=== PATIENT | male | born 2000 | race Caucasian/White ===

== ENCOUNTER 2021-07-11 11:06 | Inpatient (IN) | payer OTHER ==
[~2021-07-11] VITALS: Ht 170.2 cm; Wt 57.3 kg
[2021-07-11 12:06] LABS: BASOPHILS % (AUTO) 0.5 % (0.0-2.0); EOSINOPHILS % (AUTO) 0.4 % (1.0-6.0); HEMATOCRIT 44.3 % (41-53); HEMOGLOBIN 14.8 g/dL (13.5-17.5); LYMPHOCYTES # (AUTO) 0.9 K/uL (1.0-4.8); LYMPHOCYTES % (AUTO) 18.4 % (22.0-44.0); MEAN CORPUSCULAR HGB CONC 33.5 G/dL (31.0-37.0); MEAN CORPUSCULAR VOLUME 90 fL (80-100); MONOCYTES # (AUTO) 0.3 K/uL (0.1-1.0); NEUTROPHILS # (AUTO) 3.6 K/uL (1.8-7.7); NEUTROPHILS % (AUTO) 73.7 % (40.0-70.0); PLATELET COUNT (AUTO) 255 K/uL (150-450); RED BLOOD CELL COUNT(AUTO) 4.95 MIL/uL (4.50-5.90); RED CELL DISTRIBUTION WIDTH 13.3 % (11.5-14.5)
[2021-07-11 12:14] LABS: ANION GAP 10 mmol/L (8-16); CALCIUM, TOTAL 9.6 mg/dL (8.8-10.5); CARBON DIOXIDE 29 mmol/L (22-29); CHLORIDE 102 mmol/L (98-107); CREATININE 0.82 mg/dL (0.60-1.30); GLOMERULAR FILTR. RATE CALC > 60 mL/min (>60); GLUCOSE,RANDOM 95 mg/dL (70-110); POTASSIUM 3.7 mmol/L (3.5-5.1); SODIUM SERUM 141 mmol/L (136-145); UREA NITROGEN, BLOOD 12 mg/dL (7-18)
[2021-07-11 12:20] LABS: ALANINE AMINOTRANSFERASE 21 U/L (12-78); ALBUMIN 4.8 g/dL (3.4-5.0); ALKALINE PHOSPHATASE 67 U/L (46-116); ASPARTATE AMINOTRANSFERASE 27 U/L (15-37); BILIRUBIN,TOTAL 1.6 mg/dL (0.1-1.0); TOTAL PROTEIN, SERUM 8.4 g/dL (6.4-8.2)
[2021-07-11 12:44] LABS: COVID AG,FIA SOURCE NASOPHARYNGEAL
[2021-07-11] MEDS ORDERED: DiphenhydrAMINE HCL 50 MG/ML VIAL ONE (12:58)
[2021-07-11] MEDS ORDERED: LORazepam 2 MG/ML VIAL ONE (12:58)
[2021-07-11] MEDS ORDERED: HALOPERIDOL LACTATE 5 MG/ML VIAL ONE (12:58)
[2021-07-11] MEDS ORDERED: HALOPERIDOL LACTATE 5 MG/ML VIAL IM ONE (13:15)
[2021-07-11] MEDS ORDERED: DiphenhydrAMINE HCL 50 MG/ML VIAL IM ONE (13:15)
[2021-07-11] MEDS ORDERED: LORazepam 2 MG/ML VIAL IM ONE (13:15)
[2021-07-11] MEDS ORDERED: GuaiFENesin/D-METHORPHAN [SUGAR-FREE] 200-20MG/10 ML SYRUP UDCUP PO PRN (18:15)
[2021-07-11] MEDS ORDERED: PROMETHAZINE HCL 25 MG TABLET PO PRN (18:15)
[2021-07-11] MEDS ORDERED: TUBERCULIN, PURIFIED PROTEIN DERIVATIVE 5 TU/0.1 ML SYRINGE ID ONE (18:15)
[2021-07-11] MEDS ORDERED: MAG HYDROX/AL HYDROX/SIMETH ES 30 ML SUSPENSION UDCUP PO PRN (18:15)
[2021-07-11] MEDS ORDERED: MAGNESIUM HYDROXIDE SUSPENSION 30 ML UDCUP PO PRN (18:15)
[2021-07-11] MEDS ORDERED: ACETAMINOPHEN 325 MG TABLET PO PRN (18:15)
[2021-07-11] MEDS ORDERED: HydrOXYzine PAMOATE 50 MG CAPSULE PO PRN (18:15)
[2021-07-11] MEDS ORDERED: LOPERAMIDE HCL 2 MG CAPSULE PO PRN (18:15)
[2021-07-11] MEDS: THIAMINE 100 MG TABLET PO SCH (18:33)
[2021-07-11] MEDS: OLANZapine 5 MG RAPDIS TABLET PO SCH (18:33)
[2021-07-11] MEDS: DIVALPROEX SODIUM 500 MG ER TABLET PO SCH (18:33)
[2021-07-11] MEDS ORDERED: OLANZapine 5 MG RAPDIS TABLET PO PRN (19:15)
[2021-07-11 20:29] VITALS: BP 105/60
[2021-07-11] MEDS: MELATONIN 5 MG TABLET PO SCH (20:32)
[2021-07-11] MEDS ORDERED: INFLUENZA VIRUS VACCINE QVS 2021-22 (6MO+)/PF 60 MCG/0.5 ML SYRINGE IM. ONE (20:45)
[2021-07-12 08:07] LABS: HEMOGLOBIN A1C 5.4 % (3.8-5.6)
[2021-07-12 08:19] LABS: FREE T4 (FREE THYROXINE) 1.49 ng/dL (0.76-1.46); THYROID STIMULATING HORMONE 1.85 uIU/mL (0.36-3.74)
[2021-07-12] MEDS: MULTIVITAMINS WITH MINERALS, THERAPEUTIC TABLET PO SCH (10:36)
[2021-07-12] MEDS: OLANZapine 5 MG RAPDIS TABLET PO SCH ×3 (10:36→17:02)
[2021-07-12] MEDS: DIVALPROEX SODIUM 500 MG ER TABLET PO SCH ×2 (10:37→16:04)
[2021-07-12] MEDS: OMEGA-3/DHA/EPA/FISH OIL 1,000 MG CAPSULE PO SCH (10:37)
[2021-07-12] MEDS: FOLIC ACID 1 MG TABLET PO SCH (10:37)
[2021-07-12] MEDS: NALTREXONE HCL 50 MG TABLET PO SCH (10:37)
[2021-07-12] MEDS: THIAMINE 100 MG TABLET PO SCH ×2 (10:38→16:04)
[2021-07-12 12:31] VITALS: BP 104/63
[2021-07-12 16:25] VITALS: BP 115/72
[2021-07-12 17:16] VITALS: BP 117/73
[2021-07-12 20:16] LABS: AMPHET/METH SCREEN,URINE NEGATIVE (NEGATIVE); BARBITURATE SCREEN, URINE NEGATIVE (NEGATIVE); BENZODIAZEPINES SCREEN,URINE NEGATIVE (NEGATIVE); CANNABINOID SCREEN,URINE NEGATIVE (NEGATIVE); COCAINE SCREEN,URINE NEGATIVE (NEGATIVE); METHADONE SCREEN, URINE NEGATIVE (NEGATIVE); OPIATE SCREEN,URINE NEGATIVE (NEGATIVE)
[2021-07-12 20:19] LABS: PHENCYCLIDINE SCREEN,URINE NEGATIVE (NEGATIVE)
[2021-07-12] MEDS: MELATONIN 5 MG TABLET PO SCH (20:19)
[2021-07-12] MEDS ORDERED: PALIPERIDONE PALMITATE 234 MG/1.5 ML SYRINGE IM ONE (22:00)
[2021-07-13 08:12] VITALS: BP 117/66
[2021-07-13] MEDS: NALTREXONE HCL 50 MG TABLET PO SCH (09:04)
[2021-07-13] MEDS: MULTIVITAMINS WITH MINERALS, THERAPEUTIC TABLET PO SCH (09:06)
[2021-07-13] MEDS: OMEGA-3/DHA/EPA/FISH OIL 1,000 MG CAPSULE PO SCH (09:06)
[2021-07-13] MEDS: FOLIC ACID 1 MG TABLET PO SCH (09:07)
[2021-07-13] MEDS: THIAMINE 100 MG TABLET PO SCH ×2 (09:07→16:52)
[2021-07-13] MEDS: DIVALPROEX SODIUM 500 MG ER TABLET PO SCH ×2 (09:07→16:52)
[2021-07-13] MEDS: OLANZapine 5 MG RAPDIS TABLET PO SCH ×4 (09:07→20:33)
[2021-07-13 16:44] VITALS: BP 112/63
[2021-07-13] MEDS: LORazepam 2 MG TABLET PO PRN (16:52)
[2021-07-13] MEDS: MELATONIN 5 MG TABLET PO SCH (20:28)
[2021-07-14] MEDS: FOLIC ACID 1 MG TABLET PO SCH (09:20)
[2021-07-14] MEDS: THIAMINE 100 MG TABLET PO SCH ×2 (09:20→16:47)
[2021-07-14] MEDS: OMEGA-3/DHA/EPA/FISH OIL 1,000 MG CAPSULE PO SCH (09:20)
[2021-07-14] MEDS: OLANZapine 5 MG RAPDIS TABLET PO SCH ×4 (09:20→20:17)
[2021-07-14] MEDS: NALTREXONE HCL 50 MG TABLET PO SCH (09:20)
[2021-07-14] MEDS: DIVALPROEX SODIUM 500 MG ER TABLET PO SCH ×2 (09:20→16:47)
[2021-07-14] MEDS: MULTIVITAMINS WITH MINERALS, THERAPEUTIC TABLET PO SCH (09:20)
[2021-07-14 16:30] VITALS: BP 127/69
[2021-07-14] MEDS: MELATONIN 5 MG TABLET PO SCH (20:16)
[2021-07-15 08:27] VITALS: BP 119/51
[2021-07-15] MEDS: NALTREXONE HCL 50 MG TABLET PO SCH (08:50)
[2021-07-15] MEDS: THIAMINE 100 MG TABLET PO SCH ×2 (08:51→16:41)
[2021-07-15] MEDS: DIVALPROEX SODIUM 500 MG ER TABLET PO SCH (08:52)
[2021-07-15] MEDS: OMEGA-3/DHA/EPA/FISH OIL 1,000 MG CAPSULE PO SCH (08:52)
[2021-07-15] MEDS: OLANZapine 5 MG RAPDIS TABLET PO SCH ×4 (08:52→20:45)
[2021-07-15] MEDS: FOLIC ACID 1 MG TABLET PO SCH (08:52)
[2021-07-15] MEDS: MULTIVITAMINS WITH MINERALS, THERAPEUTIC TABLET PO SCH (08:53)
[2021-07-15 16:30] VITALS: BP 117/77
[2021-07-15] MEDS: DIVALPROEX SODIUM 250 MG ER TABLET PO SCH (18:44)
[2021-07-15] MEDS: MELATONIN 5 MG TABLET PO SCH (20:46)
[2021-07-16] MEDS ORDERED: PALIPERIDONE PALMITATE 156 MG/ML SYRINGE IM ONE (09:00)
[2021-07-16 09:05] VITALS: BP 128/83
[2021-07-16] MEDS: NALTREXONE HCL 50 MG TABLET PO SCH (10:44)
[2021-07-16] MEDS: DIVALPROEX SODIUM 250 MG ER TABLET PO SCH ×3 (10:44→17:27)
[2021-07-16] MEDS: THIAMINE 100 MG TABLET PO SCH ×2 (10:51→17:27)
[2021-07-16] MEDS: MULTIVITAMINS WITH MINERALS, THERAPEUTIC TABLET PO SCH (10:51)
[2021-07-16] MEDS: OMEGA-3/DHA/EPA/FISH OIL 1,000 MG CAPSULE PO SCH (10:51)
[2021-07-16] MEDS: OLANZapine 5 MG RAPDIS TABLET PO SCH ×4 (10:51→20:13)
[2021-07-16] MEDS: FOLIC ACID 1 MG TABLET PO SCH (10:52)
[2021-07-16 16:33] VITALS: BP 106/60
[2021-07-16] MEDS: LORazepam 2 MG TABLET PO PRN (18:12)
[2021-07-16] MEDS: MELATONIN 5 MG TABLET PO SCH (20:12)
[2021-07-17] MEDS: OLANZapine 5 MG RAPDIS TABLET PO SCH ×4 (09:00→20:09)
[2021-07-17] MEDS: MULTIVITAMINS WITH MINERALS, THERAPEUTIC TABLET PO SCH (09:00)
[2021-07-17] MEDS: THIAMINE 100 MG TABLET PO SCH ×2 (09:00→17:02)
[2021-07-17] MEDS: DIVALPROEX SODIUM 250 MG ER TABLET PO SCH ×3 (09:00→17:58)
[2021-07-17] MEDS: FOLIC ACID 1 MG TABLET PO SCH (09:00)
[2021-07-17] MEDS: NALTREXONE HCL 50 MG TABLET PO SCH (09:00)
[2021-07-17] MEDS: OMEGA-3/DHA/EPA/FISH OIL 1,000 MG CAPSULE PO SCH (09:00)
[2021-07-17 09:31] VITALS: BP 119/67
[2021-07-17 16:00] VITALS: BP 123/76
[2021-07-17] MEDS: MELATONIN 5 MG TABLET PO SCH (20:09)
[2021-07-18 08:05] LABS: COVID AG,FIA SOURCE NASAL SWAB
[2021-07-18] MEDS: OLANZapine 5 MG RAPDIS TABLET PO SCH ×4 (08:29→20:23)
[2021-07-18] MEDS: FOLIC ACID 1 MG TABLET PO SCH (08:30)
[2021-07-18] MEDS: NALTREXONE HCL 50 MG TABLET PO SCH (08:30)
[2021-07-18] MEDS: OMEGA-3/DHA/EPA/FISH OIL 1,000 MG CAPSULE PO SCH (08:30)
[2021-07-18] MEDS: MULTIVITAMINS WITH MINERALS, THERAPEUTIC TABLET PO SCH (08:30)
[2021-07-18] MEDS: THIAMINE 100 MG TABLET PO SCH ×2 (08:30→16:17)
[2021-07-18] MEDS: DIVALPROEX SODIUM 250 MG ER TABLET PO SCH ×3 (08:30→16:17)
[2021-07-18 08:33] VITALS: BP 121/70
[2021-07-18 16:14] VITALS: BP 107/66
[2021-07-18] MEDS: MELATONIN 5 MG TABLET PO SCH (20:24)
[2021-07-18] MEDS ORDERED: OLAN5TAB94 PO (20:47)
[2021-07-18] MEDS ORDERED: OMEG-135 PO (20:47)
[2021-07-18] MEDS ORDERED: NALT50TA PO (20:47)
[2021-07-18] MEDS ORDERED: MELA5TAB40 PO (20:47)
[2021-07-18] MEDS ORDERED: DIVA-85 PO (20:47)
[2021-07-19] MEDS: DIVALPROEX SODIUM 250 MG ER TABLET PO SCH ×2 (08:12→13:11)
[2021-07-19] MEDS: NALTREXONE HCL 50 MG TABLET PO SCH (08:12)
[2021-07-19] MEDS: FOLIC ACID 1 MG TABLET PO SCH (08:13)
[2021-07-19] MEDS: OLANZapine 5 MG RAPDIS TABLET PO SCH ×2 (08:13→13:11)
[2021-07-19] MEDS: OMEGA-3/DHA/EPA/FISH OIL 1,000 MG CAPSULE PO SCH (08:13)
[2021-07-19] MEDS: MULTIVITAMINS WITH MINERALS, THERAPEUTIC TABLET PO SCH (08:13)
[2021-07-19] MEDS: THIAMINE 100 MG TABLET PO SCH (08:13)
[2021-07-19 09:45] VITALS: BP 118/71
== END 2021-07-19 13:25 | disposition home or self-care (01) | DRG 885 ==
LOC: EMS 11:06 → 3EC 18:03
PROVIDERS: ADMIT Psychiatry & Neurology Psychiatry; ATTEND Psychiatry & Neurology Psychiatry
DX: F25.9 Schizoaffective disorder, unspecified (principal); F17.210 Nicotine dependence, cigarettes, uncomplicated; F32.A Depression, unspecified; F94.0 Selective mutism; F12.10 Cannabis abuse, uncomplicated; Z55.9 Problems related to education and literacy, unspecified; Z59.9 Problem related to housing and economic circumstances, unspecified; Z65.3 Problems related to other legal circumstances; Z91.19 Patient's noncompliance with other medical treatment and regimen; Z91.51 Personal history of suicidal behavior; Z20.822 Contact with and (suspected) exposure to COVID-19; Z79.899 Other long term (current) drug therapy
CPT/HCPCS: 80053; 80164; 83036; 84439; 84443; 85025; 86592; 99291; G0480; J1200; J1630; J2060; Q9967

== ENCOUNTER 2022-03-02 07:39 | Inpatient (IN) | payer MEDICAID, OTHER ==
[~2022-03-02] VITALS: Ht 170.2 cm; Wt 66.4 kg
[~2022-03-02 07:39] MED LIST: DIVA-85 PO; MELA5TAB40 PO; NALT50TA PO; OLAN10TA26 PO; OMEG-108 PO
[2022-03-02 09:11] LABS: ANION GAP 10 mmol/L (8-16); CALCIUM, TOTAL 9.5 mg/dL (8.8-10.5); CARBON DIOXIDE 27 mmol/L (22-29); CHLORIDE 103 mmol/L (98-107); GLOMERULAR FILTR. RATE CALC > 60 mL/min (>60); GLUCOSE,RANDOM 97 mg/dL (70-110); POTASSIUM 3.7 mmol/L (3.5-5.1); SODIUM SERUM 140 mmol/L (136-145); UREA NITROGEN, BLOOD 10 mg/dL (7-18)
[2022-03-02 09:12] LABS: BASOPHILS % (AUTO) 0.4 % (0.0-2.0); EOSINOPHILS % (AUTO) 1.1 % (1.0-6.0); HEMATOCRIT 44.6 % (41-53); HEMOGLOBIN 15.1 g/dL (13.5-17.5); LYMPHOCYTES # (AUTO) 1.3 K/uL (1.0-4.8); MEAN CORPUSCULAR HGB CONC 33.8 G/dL (31.0-37.0); MEAN CORPUSCULAR VOLUME 89 fL (80-100); MONOCYTES # (AUTO) 0.3 K/uL (0.1-1.0); NEUTROPHILS # (AUTO) 3.6 K/uL (1.8-7.7); NEUTROPHILS % (AUTO) 67.5 % (40.0-70.0); PLATELET COUNT (AUTO) 221 K/uL (150-450); RED BLOOD CELL COUNT(AUTO) 5.03 MIL/uL (4.50-5.90); RED CELL DISTRIBUTION WIDTH 13.5 % (11.5-14.5)
[2022-03-02 09:17] LABS: ALANINE AMINOTRANSFERASE 18 U/L (12-78); ALBUMIN 4.5 g/dL (3.4-5.0); ALKALINE PHOSPHATASE 67 U/L (46-116); ASPARTATE AMINOTRANSFERASE 17 U/L (15-37); TOTAL PROTEIN, SERUM 8.1 g/dL (6.4-8.2)
[2022-03-02] MEDS ORDERED: HALOPERIDOL 5 MG TABLET PO PRN (10:00)
[2022-03-02] MEDS ORDERED: OLANZapine 5 MG RAPDIS TABLET PO ONE (10:00)
[2022-03-02] MEDS ORDERED: LORazepam 2 MG TABLET PO PRN (10:00)
[2022-03-02] MEDS ORDERED: ZOLPIDEM TARTRATE 10 MG TABLET PO PRN (10:00)
[2022-03-02 10:56] LABS: COVID AG,FIA SOURCE NASAL SWAB
[2022-03-02 11:34] LABS: AMPHET/METH SCREEN,URINE NEGATIVE (NEGATIVE); BARBITURATE SCREEN, URINE NEGATIVE (NEGATIVE); BENZODIAZEPINES SCREEN,URINE NEGATIVE (NEGATIVE); CANNABINOID SCREEN,URINE POSITIVE (NEGATIVE); COCAINE SCREEN,URINE NEGATIVE (NEGATIVE); METHADONE SCREEN, URINE NEGATIVE (NEGATIVE); OPIATE SCREEN,URINE NEGATIVE (NEGATIVE); PHENCYCLIDINE SCREEN,URINE NEGATIVE (NEGATIVE)
[2022-03-02 16:43] VITALS: BP 110/64
[2022-03-03 04:03] VITALS: BP 104/59
[2022-03-03 08:36] VITALS: BP 104/65
[2022-03-03] MEDS: SERTRALINE HCL 50 MG TABLET PO SCH (13:07)
[2022-03-03] MEDS: NALTREXONE HCL 50 MG TABLET PO SCH (13:07)
[2022-03-03] MEDS ORDERED: MAG HYDROX/AL HYDROX/SIMETH ES 30 ML SUSPENSION UDCUP PO PRN (13:45)
[2022-03-03] MEDS ORDERED: MAGNESIUM HYDROXIDE SUSPENSION 30 ML UDCUP PO PRN (13:45)
[2022-03-03] MEDS ORDERED: CloNIDine HCL 0.1 MG TABLET PO PRN (13:45)
[2022-03-03] MEDS ORDERED: IBUPROFEN 400 MG TABLET PO PRN (13:45)
[2022-03-03] MEDS ORDERED: LOPERAMIDE HCL 2 MG CAPSULE PO PRN (13:45)
[2022-03-03] MEDS ORDERED: NICOTINE 14 MG/24 HOUR PATCH TD PRN (13:45)
[2022-03-03] MEDS ORDERED: PETROLATUM,WHITE 28 GM JELLY TP PRN (13:45)
[2022-03-03] MEDS ORDERED: GuaiFENesin/D-METHORPHAN [SUGAR-FREE] 200-20MG/10 ML SYRUP UDCUP PO PRN (13:45)
[2022-03-03] MEDS ORDERED: ACETAMINOPHEN 325 MG TABLET PO PRN (13:45)
[2022-03-03] MEDS ORDERED: ALBUTEROL SULFATE HFA 90 MCG/PUFF 8 GM INHALER IH PRN (13:45)
[2022-03-03] MEDS ORDERED: DOCUSATE SODIUM 100 MG CAPSULE PO PRN (13:45)
[2022-03-03] MEDS ORDERED: ONDANSETRON HCL 4 MG TABLET PO PRN (13:45)
[2022-03-03 16:17] VITALS: BP 117/80
[2022-03-03] MEDS: DIVALPROEX SODIUM 250 MG ER TABLET PO SCH (20:18)
[2022-03-03] MEDS: OLANZapine 10 MG TABLET PO SCH (20:19)
[2022-03-04 03:58] VITALS: BP 100/60
[2022-03-04 08:24] VITALS: BP 126/72
[2022-03-04] MEDS: NALTREXONE HCL 50 MG TABLET PO SCH (08:25)
[2022-03-04] MEDS: SERTRALINE HCL 50 MG TABLET PO SCH (08:25)
[2022-03-04 16:14] VITALS: BP 103/69
[2022-03-04] MEDS: DIVALPROEX SODIUM 250 MG ER TABLET PO SCH (20:40)
[2022-03-04] MEDS: OLANZapine 10 MG TABLET PO SCH (20:41)
[2022-03-05 00:25] VITALS: BP 108/62
[2022-03-05] MEDS: SERTRALINE HCL 50 MG TABLET PO SCH (08:20)
[2022-03-05] MEDS: NALTREXONE HCL 50 MG TABLET PO SCH (08:20)
[2022-03-05 08:24] VITALS: BP 114/70
[2022-03-05 16:20] VITALS: BP 107/64
[2022-03-05] MEDS: OLANZapine 10 MG TABLET PO SCH (20:47)
[2022-03-05] MEDS: DIVALPROEX SODIUM 250 MG ER TABLET PO SCH (20:47)
[2022-03-06 05:19] VITALS: BP 104/61
[2022-03-06] MEDS: NALTREXONE HCL 50 MG TABLET PO SCH (08:23)
[2022-03-06] MEDS: SERTRALINE HCL 50 MG TABLET PO SCH (08:23)
[2022-03-06] MEDS ORDERED: NALT50TA PO (10:47)
[2022-03-06] MEDS ORDERED: SERT-439 PO (10:47)
[2022-03-06] MEDS ORDERED: DIVA-85 PO (10:47)
[2022-03-06] MEDS ORDERED: OLAN10 PO (10:47)
== END 2022-03-06 14:59 | disposition home or self-care (01) | DRG 750 ==
LOC: EMS 07:39 → B3A 10:41
PROVIDERS: ADMIT Psychiatry & Neurology Child & Adolescent Psychiatry; ATTEND Psychiatry & Neurology Child & Adolescent Psychiatry
DX: F20.0 Paranoid schizophrenia (principal); R45.851 Suicidal ideations; F12.20 Cannabis dependence, uncomplicated; F41.9 Anxiety disorder, unspecified; Z20.822 Contact with and (suspected) exposure to COVID-19; R63.0 Anorexia; G47.00 Insomnia, unspecified; Z87.891 Personal history of nicotine dependence; Z91.51 Personal history of suicidal behavior; Z68.22 Body mass index [BMI] 22.0-22.9, adult; Z79.899 Other long term (current) drug therapy; V89.2XXA Person injured in unspecified motor-vehicle accident, traffic, initial encounter; Y93.89 Activity, other specified; Y92.89 Other specified places as the place of occurrence of the external cause; Y99.8 Other external cause status
CPT/HCPCS: 80053; 85025; 99285; G0480

== ENCOUNTER 2022-09-25 18:13 | Inpatient (IN) | payer MEDICAID, OTHER ==
[~2022-09-25] VITALS: Ht 182.9 cm; Wt 64.3 kg
[~2022-09-25 18:13] MED LIST changes: +OLAN10 PO; -OMEG-108 PO; +SERT-439 PO
[2022-09-25] MEDS ORDERED: LORazepam 2 MG TABLET PO ONE (20:00)
[2022-09-25] MEDS ORDERED: DiphenhydrAMINE HCL 25 MG CAPSULE PO ONE (20:00)
[2022-09-25] MEDS ORDERED: HALOPERIDOL 5 MG TABLET PO ONE (20:00)
[2022-09-25 20:11] LABS: BASOPHILS % (AUTO) 0.3 % (0.0-2.0); EOSINOPHILS % (AUTO) 0.2 % (1.0-6.0); HEMATOCRIT 46.2 % (41-53); HEMOGLOBIN 15.3 g/dL (13.5-17.5); LYMPHOCYTES # (AUTO) 0.8 K/uL (1.0-4.8); LYMPHOCYTES % (AUTO) 6.5 % (22.0-44.0); MEAN CORPUSCULAR HEMOGLOBIN 29.4 pg (26.0-34.0); MEAN CORPUSCULAR VOLUME 89 fL (80-100); MONOCYTES # (AUTO) 0.4 K/uL (0.1-1.0); MONOCYTES % (AUTO) 3.4 % (2.0-9.0); NEUTROPHILS # (AUTO) 10.7 K/uL (1.8-7.7); PLATELET COUNT (AUTO) 290 K/uL (150-450); RED CELL DISTRIBUTION WIDTH 13.9 % (11.5-14.5)
[2022-09-25 20:15] LABS: NEUTROPHILS % (AUTO) 89.6 % (40.0-70.0)
[2022-09-25 20:25] LABS: COVID AG,FIA SOURCE NASAL SWAB
[2022-09-25 20:25] LABS: ANION GAP 9 mmol/L (8-16); CALCIUM, TOTAL 10.2 mg/dL (8.8-10.5); CARBON DIOXIDE 30 mmol/L (22-29); CHLORIDE 102 mmol/L (98-107); CREATININE 0.97 mg/dL (0.60-1.30); GLUCOSE,RANDOM 104 mg/dL (70-110); POTASSIUM 4.6 mmol/L (3.5-5.1); SODIUM SERUM 141 mmol/L (136-145); UREA NITROGEN, BLOOD 15 mg/dL (7-18)
[2022-09-25 20:26] LABS: GLOMERULAR FILTR. RATE CALC > 60 mL/min (>60)
[2022-09-25 20:31] LABS: ALANINE AMINOTRANSFERASE 18 U/L (12-78); ALBUMIN 4.6 g/dL (3.4-5.0); ALKALINE PHOSPHATASE 82 U/L (46-116); ASPARTATE AMINOTRANSFERASE 18 U/L (15-37); BILIRUBIN,TOTAL 0.5 mg/dL (0.1-1.0); TOTAL PROTEIN, SERUM 8.8 g/dL (6.4-8.2)
[2022-09-25] MEDS ORDERED: LORazepam 2 MG TABLET PO PRN (22:30)
[2022-09-25] MEDS ORDERED: ZOLPIDEM TARTRATE 10 MG TABLET PO PRN (22:30)
[2022-09-25] MEDS ORDERED: OLANZapine 5 MG RAPDIS TABLET PO PRN (22:30)
[2022-09-26 11:00] VITALS: BP 124/87
[2022-09-26] MEDS ORDERED: PNEUMOCOCCAL VACCINE POLYVALENT 0.5 ML VIAL [PPSV23] IM. ONE (12:00)
[2022-09-26] MEDS ORDERED: INFLUENZA VIRUS VACCINE QVS 2022-23 (6MO+)/PF 60 MCG/0.5 ML SYRINGE IM. ONE (12:00)
[2022-09-26] MEDS ORDERED: PROMETHAZINE HCL 25 MG TABLET PO PRN (15:30)
[2022-09-26] MEDS ORDERED: HydrOXYzine PAMOATE 50 MG CAPSULE PO PRN (15:30)
[2022-09-26] MEDS ORDERED: TUBERCULIN, PURIFIED PROTEIN DERIVATIVE 5 TU/0.1 ML SYRINGE ID ONE (15:30)
[2022-09-26] MEDS ORDERED: LOPERAMIDE HCL 2 MG CAPSULE PO PRN (15:30)
[2022-09-26] MEDS ORDERED: MAG HYDROX/AL HYDROX/SIMETH ES 30 ML SUSPENSION UDCUP PO PRN (15:30)
[2022-09-26] MEDS ORDERED: ACETAMINOPHEN 325 MG TABLET PO PRN (15:30)
[2022-09-26] MEDS ORDERED: GuaiFENesin/D-METHORPHAN [SUGAR-FREE] 200-20MG/10 ML SYRUP UDCUP PO PRN (15:30)
[2022-09-26] MEDS ORDERED: MAGNESIUM HYDROXIDE SUSPENSION 30 ML UDCUP PO PRN (15:30)
[2022-09-26] MEDS: THIAMINE 100 MG TABLET PO SCH (16:45)
[2022-09-26 20:11] VITALS: BP 110/84
[2022-09-26] MEDS: MELATONIN 5 MG TABLET PO SCH (20:47)
[2022-09-26] MEDS: OLANZapine 5 MG RAPDIS TABLET PO SCH (20:48)
[2022-09-27 07:10] LABS: HEMOGLOBIN A1C 5.4 % (3.8-5.6)
[2022-09-27 07:38] LABS: FREE T4 (FREE THYROXINE) 1.09 ng/dL (0.76-1.46); THYROID STIMULATING HORMONE 2.07 uIU/mL (0.36-3.74)
[2022-09-27 08:14] VITALS: BP 112/61
[2022-09-27] MEDS ORDERED: PALIPERIDONE PALMITATE 234 MG/1.5 ML SYRINGE IM ONE (09:00)
[2022-09-27] MEDS: THIAMINE 100 MG TABLET PO SCH ×2 (09:34→17:04)
[2022-09-27] MEDS: MULTIVITAMINS WITH MINERALS, THERAPEUTIC TABLET PO SCH (09:34)
[2022-09-27] MEDS: NALTREXONE HCL 50 MG TABLET PO SCH (09:34)
[2022-09-27] MEDS: FOLIC ACID 1 MG TABLET PO SCH (09:34)
[2022-09-27] MEDS: OMEGA-3/DHA/EPA/FISH OIL 1,000 MG CAPSULE PO SCH (09:34)
[2022-09-27 20:39] VITALS: BP 134/63
[2022-09-27] MEDS: MELATONIN 5 MG TABLET PO SCH (21:03)
[2022-09-27] MEDS: OLANZapine 5 MG RAPDIS TABLET PO SCH (21:03)
[2022-09-28 08:24] VITALS: BP 114/67
[2022-09-28] MEDS: OMEGA-3/DHA/EPA/FISH OIL 1,000 MG CAPSULE PO SCH (09:27)
[2022-09-28] MEDS: THIAMINE 100 MG TABLET PO SCH ×2 (09:27→16:38)
[2022-09-28] MEDS: NALTREXONE HCL 50 MG TABLET PO SCH (09:28)
[2022-09-28] MEDS: FOLIC ACID 1 MG TABLET PO SCH (09:28)
[2022-09-28] MEDS: MULTIVITAMINS WITH MINERALS, THERAPEUTIC TABLET PO SCH (09:28)
[2022-09-28] MEDS ORDERED: MELA5TAB40 PO (15:18)
[2022-09-28] MEDS ORDERED: FLUO20CA36 PO (15:18)
[2022-09-28] MEDS ORDERED: NALT50TA PO (15:18)
[2022-09-28] MEDS ORDERED: OMEG-135 PO (15:18)
[2022-09-28] MEDS ORDERED: PALI117D IM (15:18)
[2022-09-28 20:00] VITALS: BP 114/69
[2022-09-28] MEDS: MELATONIN 5 MG TABLET PO SCH (21:01)
[2022-09-29 08:33] VITALS: BP 114/68
[2022-09-29] MEDS: OMEGA-3/DHA/EPA/FISH OIL 1,000 MG CAPSULE PO SCH (08:58)
[2022-09-29] MEDS: MULTIVITAMINS WITH MINERALS, THERAPEUTIC TABLET PO SCH (08:58)
[2022-09-29] MEDS: THIAMINE 100 MG TABLET PO SCH (08:58)
[2022-09-29] MEDS: FOLIC ACID 1 MG TABLET PO SCH (08:58)
[2022-09-29] MEDS: NALTREXONE HCL 50 MG TABLET PO SCH (08:59)
[2022-09-29] MEDS ORDERED: FLUoxetine HCL 20 MG CAPSULE PO SCH (09:00)
[2022-09-29] MEDS ORDERED: FLUO20CA36 PO (09:34)
[2022-09-29] MEDS ORDERED: OMEG-135 PO (09:34)
[2022-09-29] MEDS ORDERED: PALI117D IM (09:47)
[2022-10-01] MEDS ORDERED: PALIPERIDONE PALMITATE 156 MG/ML SYRINGE IM ONE (09:00)
== END 2022-09-29 11:45 | disposition home or self-care (01) | DRG 750 ==
LOC: EMS 18:43 → B2S 09-26 08:46
PROVIDERS: ADMIT Psychiatry & Neurology Psychiatry; ATTEND Psychiatry & Neurology Psychiatry
DX: F25.9 Schizoaffective disorder, unspecified (principal); R45.851 Suicidal ideations; Z91.199 Patient's noncompliance with other medical treatment and regimen due to unspecified reason; E05.90 Thyrotoxicosis, unspecified without thyrotoxic crisis or storm; F12.10 Cannabis abuse, uncomplicated; F17.210 Nicotine dependence, cigarettes, uncomplicated; F32.9 Major depressive disorder, single episode, unspecified; Z55.9 Problems related to education and literacy, unspecified; Z59.9 Problem related to housing and economic circumstances, unspecified; Z63.9 Problem related to primary support group, unspecified; Z65.3 Problems related to other legal circumstances; Z91.51 Personal history of suicidal behavior
CPT/HCPCS: 80053; 80061; 83036; 84439; 84443; 85025; 86592; 99285; G0480; Q9967

== ENCOUNTER 2022-12-08 17:53 | Emergency (ER) | payer MEDICAID, OTHER ==
[~2022-12-08] VITALS: Ht 177.8 cm; Wt 75.0 kg
[~2022-12-08 17:53] MED LIST changes: -DIVA-85 PO; +FLUO20CA36 PO; -OLAN10 PO; -OLAN10TA26 PO; +OMEG-135 PO; +PALI117D IM; -SERT-439 PO
[2022-12-08] MEDS ORDERED: ACETAMINOPHEN 500 MG TABLET PO ONE (18:15)
[2022-12-08] MEDS ORDERED: PERTUSS(ACELL),DIPH,TET VAC/PF 0.5 ML SYRINGE IM. ONE (18:15)
[2022-12-08] MEDS ORDERED: CEPHALEXIN MONOHYDRATE 500 MG CAPSULE PO ONE (18:15)
[2022-12-08] MEDS ORDERED: CEPH-558 PO (20:26)
[2022-12-08 20:47] VITALS: BP 131/75
== END 2022-12-08 21:15 | disposition still patient (30) ==
LOC: EMS 17:54
DX: S61.412A Laceration without foreign body of left hand, initial encounter (principal); F20.9 Schizophrenia, unspecified; F32.A Depression, unspecified; F12.90 Cannabis use, unspecified, uncomplicated; W26.0XXA Contact with knife, initial encounter; Y93.89 Activity, other specified; Y92.89 Other specified places as the place of occurrence of the external cause; Y99.8 Other external cause status
CPT/HCPCS: 90471; 90715; 99284

== ENCOUNTER 2023-05-07 17:25 | Emergency (ER) | payer MEDICAID, OTHER ==
[~2023-05-07] VITALS: Ht 180.3 cm; Wt 65.0 kg
[~2023-05-07 17:25] MED LIST changes: +CEPH-558 PO
[2023-05-07 17:38] VITALS: BP 134/64; PULSE 83; RESP 16; TEMP 98.3
== END 2023-05-07 19:27 | disposition home or self-care (01) ==
LOC: EMS 17:53
DX: S01.81XD Laceration without foreign body of other part of head, subsequent encounter (principal); F32.A Depression, unspecified; F20.9 Schizophrenia, unspecified; F12.90 Cannabis use, unspecified, uncomplicated; Z48.02 Encounter for removal of sutures; X58.XXXD Exposure to other specified factors, subsequent encounter
CPT/HCPCS: 99281; Z7502

== ENCOUNTER 2023-05-14 19:58 | Emergency (ER) | payer OTHER ==
[~2023-05-14] VITALS: Ht 175.3 cm; Wt 70.0 kg
[2023-05-14 20:05] VITALS: TEMP 97.7
[2023-05-14 21:32] LABS: HEMATOCRIT 34.7 % (41-53); HEMOGLOBIN 11.4 g/dL (13.5-17.5); MEAN CORPUSCULAR HEMOGLOBIN 29.2 pg (26.0-34.0); MEAN CORPUSCULAR HGB CONC 32.8 G/dL (31.0-37.0); MEAN CORPUSCULAR VOLUME 89 fL (80-100); PLATELET COUNT (AUTO) 352 K/uL (150-450); RED BLOOD CELL COUNT(AUTO) 3.89 MIL/uL (4.50-5.90); RED CELL DISTRIBUTION WIDTH 13.7 % (11.5-14.5)
[2023-05-14 21:37] LABS: AMPHET/METH SCREEN,URINE NEGATIVE (NEGATIVE); BARBITURATE SCREEN, URINE NEGATIVE (NEGATIVE); BENZODIAZEPINES SCREEN,URINE NEGATIVE (NEGATIVE); CANNABINOID SCREEN,URINE POSITIVE (NEGATIVE); COCAINE SCREEN,URINE NEGATIVE (NEGATIVE); METHADONE SCREEN, URINE NEGATIVE (NEGATIVE); OPIATE SCREEN,URINE NEGATIVE (NEGATIVE); PHENCYCLIDINE SCREEN,URINE NEGATIVE (NEGATIVE)
[2023-05-14 21:52] LABS: ANION GAP 14 mmol/L (8-16); CALCIUM, TOTAL 9.9 mg/dL (8.8-10.5); CARBON DIOXIDE 25 mmol/L (22-29); CHLORIDE 102 mmol/L (98-107); CREATININE 1.01 mg/dL (0.60-1.30); GLOMERULAR FILTR. RATE CALC > 60 mL/min (>60); GLUCOSE,RANDOM 133 mg/dL (70-110); POTASSIUM 3.3 mmol/L (3.5-5.1); SODIUM SERUM 141 mmol/L (136-145)
[2023-05-14 21:57] LABS: LYMPHOCYTES % (AUTO) 7.3 % (22.0-44.0); NEUTROPHILS % (AUTO) 90.1 % (40.0-70.0)
[2023-05-14 21:58] LABS: BASOPHILS % (AUTO) 0.2 % (0.0-2.0); EOSINOPHILS % (AUTO) 0 % (1.0-6.0); LYMPHOCYTES # (AUTO) 0.7 K/uL (1.0-4.8); MONOCYTES # (AUTO) 0.2 K/uL (0.1-1.0); MONOCYTES % (AUTO) 2.4 % (2.0-9.0); NEUTROPHILS # (AUTO) 8.8 K/uL (1.8-7.7)
[2023-05-14 22:44] LABS: ALANINE AMINOTRANSFERASE 21 U/L (12-78); ALBUMIN 4.6 g/dL (3.4-5.0); ALKALINE PHOSPHATASE 85 U/L (46-116); ASPARTATE AMINOTRANSFERASE 22 U/L (15-37); BILIRUBIN,TOTAL 0.6 mg/dL (0.1-1.0); TOTAL PROTEIN, SERUM 8.2 g/dL (6.4-8.2)
[2023-05-14] MEDS ORDERED: ONDANSETRON HCL 4 MG/2 ML VIAL IVP ONE (23:45)
[2023-05-14] MEDS ORDERED: SODIUM CHLORIDE 0.9% 1,000 ML IV ONE (23:45)
[2023-05-15] MEDS ORDERED: ONDA-104 PO ×2 (00:59→01:12)
[2023-05-15] MEDS ORDERED: LORazepam 1 MG TABLET PO ONE (01:00)
[2023-05-15] MEDS ORDERED: POTASSIUM CHLORIDE 10 MEQ ER TABLET PO ONE (01:00)
[2023-05-15 01:10] VITALS: BP 111/74; PULSE 69; RESP 16
== END 2023-05-15 01:25 | disposition home or self-care (01) ==
LOC: EMS 19:58
DX: E86.0 Dehydration (principal); R10.84 Generalized abdominal pain; F32.A Depression, unspecified; F20.9 Schizophrenia, unspecified; F12.90 Cannabis use, unspecified, uncomplicated
CPT/HCPCS: 99285; 74176; 80053; 85025; 36415; 80307; 96374; 96361; J2405; J7030; G0480

== ENCOUNTER 2023-10-03 20:07 | Inpatient (IN) | payer MEDICAID, OTHER ==
[~2023-10-03] VITALS: Ht 172.7 cm; Wt 57.9 kg
[~2023-10-03 20:07] MED LIST changes: +ONDA-104 PO
[2023-10-03 20:59] LABS: BASOPHILS % (AUTO) 0.3 % (0.0-2.0); EOSINOPHILS % (AUTO) 0.5 % (1.0-6.0); HEMATOCRIT 41.2 % (41-53); HEMOGLOBIN 13.8 g/dL (13.5-17.5); LYMPHOCYTES # (AUTO) 0.9 K/uL (1.0-4.8); LYMPHOCYTES % (AUTO) 10.9 % (22.0-44.0); MEAN CORPUSCULAR HEMOGLOBIN 28.7 pg (26.0-34.0); MEAN CORPUSCULAR HGB CONC 33.6 G/dL (31.0-37.0); MEAN CORPUSCULAR VOLUME 86 fL (80-100); MONOCYTES # (AUTO) 0.4 K/uL (0.1-1.0); MONOCYTES % (AUTO) 4.8 % (2.0-9.0); NEUTROPHILS % (AUTO) 83.5 % (40.0-70.0); PLATELET COUNT (AUTO) 320 K/uL (150-450); RED BLOOD CELL COUNT(AUTO) 4.82 MIL/uL (4.50-5.90); RED CELL DISTRIBUTION WIDTH 15.4 % (11.5-14.5); WHITE BLOOD COUNT (AUTO) 8.4 K/uL (4.5-11.0)
[2023-10-03 21:07] LABS: ANION GAP 6 mmol/L (8-16); CALCIUM, TOTAL 9.2 mg/dL (8.8-10.5); CARBON DIOXIDE 28 mmol/L (22-29); CHLORIDE 105 mmol/L (98-107); GLOMERULAR FILTR. RATE CALC > 60 mL/min (>60); GLUCOSE,RANDOM 107 mg/dL (70-110); POTASSIUM 4.2 mmol/L (3.5-5.1); SODIUM SERUM 139 mmol/L (136-145); UREA NITROGEN, BLOOD 20 mg/dL (7-18)
[2023-10-03 21:12] LABS: ALANINE AMINOTRANSFERASE 19 U/L (12-78); ALBUMIN 4.2 g/dL (3.4-5.0); ALKALINE PHOSPHATASE 79 U/L (46-116); ASPARTATE AMINOTRANSFERASE 20 U/L (15-37); BILIRUBIN,TOTAL 0.2 mg/dL (0.1-1.0); TOTAL PROTEIN, SERUM 7.6 g/dL (6.4-8.2)
[2023-10-03 21:13] LABS: ALCOHOL, BLOOD (SERUM) < 3 mg/dL (0-10)
[2023-10-03] MEDS ORDERED: ZOLPIDEM TARTRATE 10 MG TABLET PO PRN (21:15)
[2023-10-03] MEDS ORDERED: HALOPERIDOL 5 MG TABLET PO PRN (21:15)
[2023-10-03] MEDS ORDERED: LORazepam 2 MG TABLET PO PRN (21:15)
[2023-10-03 21:24] LABS: APPEARANCE,URINE CLEAR (CLEAR); BILIRUBIN,URINE NEGATIVE (NEGATIVE); COLOR,URINE LIGHT YELLOW (YELLOW); GLUCOSE, URINE (UA) NEGATIVE (NEGATIVE); KETONES,URINE NEGATIVE (NEGATIVE); LEUKOCYTE ESTERASE ,URINE NEGATIVE (NEGATIVE); NITRATE,URINE NEGATIVE (NEGATIVE); OCCULT BLOOD,URINE NEGATIVE (NEGATIVE); PH,URINE 6.5 (5.0-8.0); PROTEIN,URINE NEGATIVE (NEGATIVE); SPECIFIC GRAVITIY, URINE 1.028 (1.003-1.030); UROBILINOGEN,URINE <=1.0 mg/dL (<=1.0)
[2023-10-03 21:25] LABS: PH,URINE DRUG SCREEN 6.5 (5.0-8.0)
[2023-10-03] MEDS ORDERED: SODIUM CHLORIDE 0.9% 250 ML IRRIG SOLUTION BOTTLE IRRIG ONE (21:30)
[2023-10-03 21:35] LABS: ALCOHOL, URINE DRUG SCREEN NEGATIVE (NEGATIVE); AMPHET/METH SCREEN,URINE NEGATIVE (NEGATIVE); BARBITURATE SCREEN, URINE NEGATIVE (NEGATIVE); BENZODIAZEPINES SCREEN,URINE NEGATIVE (NEGATIVE); CANNABINOID SCREEN,URINE NEGATIVE (NEGATIVE); COCAINE SCREEN,URINE NEGATIVE (NEGATIVE); METHADONE SCREEN, URINE NEGATIVE (NEGATIVE); OPIATE SCREEN,URINE NEGATIVE (NEGATIVE); PHENCYCLIDINE SCREEN,URINE NEGATIVE (NEGATIVE)
[2023-10-03 21:44] LABS: COVID AG,FIA SOURCE NPH
[2023-10-03 22:02] LABS: SARS-COV2 (COVID) ANTIGEN,FIA Negative (Negative)
[2023-10-03] MEDS ORDERED: QUET100T34 PO (23:16)
[2023-10-03] MEDS ORDERED: QUEtiapine FUMARATE 100 MG TABLET PO ONE (23:30)
[2023-10-04 04:14] VITALS: BP 116/73; PULSE 71; RESP 18; TEMP 97.8
[2023-10-04] MEDS ORDERED: OMEPRAZOLE 20 MG CAPSULE PO PRN (06:00)
[2023-10-04] MEDS ORDERED: DOCUSATE SODIUM 100 MG CAPSULE PO PRN (06:00)
[2023-10-04] MEDS ORDERED: CloNIDine HCL 0.1 MG TABLET PO PRN (06:00)
[2023-10-04] MEDS ORDERED: ACETAMINOPHEN 325 MG TABLET PO PRN (06:00)
[2023-10-04] MEDS ORDERED: ALBUTEROL SULFATE HFA 90 MCG/PUFF 8 GM INHALER IH PRN (06:00)
[2023-10-04] MEDS ORDERED: BENZOCAINE/MENTHOL LOZENGE PO PRN (06:00)
[2023-10-04] MEDS ORDERED: LOPERAMIDE HCL 2 MG CAPSULE PO PRN (06:00)
[2023-10-04] MEDS ORDERED: MAGNESIUM HYDROXIDE SUSPENSION 30 ML UDCUP PO PRN (06:00)
[2023-10-04] MEDS ORDERED: IBUPROFEN 600 MG TABLET PO PRN (06:00)
[2023-10-04] MEDS ORDERED: BACITRACIN 28 GM OINTMENT TP PRN (06:00)
[2023-10-04] MEDS ORDERED: PETROLATUM,WHITE 28 GM JELLY TP PRN (06:00)
[2023-10-04] MEDS ORDERED: ONDANSETRON HCL 4 MG TABLET PO PRN (06:00)
[2023-10-04] MEDS ORDERED: MAG HYDROX/ALUMINUM HYD/SIMETH ES 30 ML SUSPENSION UDCUP PO PRN (06:00)
[2023-10-04] MEDS ORDERED: INFLUENZA VIRUS VACCINE QVS 2023-24 (6MO+)/PF 60 MCG/0.5 ML SYRINGE IM. ONE (06:30)
[2023-10-04 08:25] VITALS: BP 105/65; PULSE 62; RESP 16; TEMP 98.2; O2SAT 96
[2023-10-04] MEDS: BACITRACIN 28 GM OINTMENT TP SCH ×2 (09:43→17:09)
[2023-10-04 20:23] VITALS: BP 127/71; PULSE 82; RESP 17; TEMP 97.1; O2SAT 96
[2023-10-04] MEDS: QUEtiapine FUMARATE 100 MG TABLET PO SCH (20:25)
[2023-10-05 08:50] VITALS: BP 100/60; PULSE 70; RESP 20; TEMP 97.6; O2SAT 99
[2023-10-05] MEDS: FLUoxetine HCL 20 MG CAPSULE PO SCH ×2 (09:00→09:21)
[2023-10-05] MEDS: BACITRACIN 28 GM OINTMENT TP SCH ×2 (09:22→16:23)
[2023-10-05] MEDS: QUEtiapine FUMARATE 100 MG TABLET PO SCH (20:28)
[2023-10-05 20:50] VITALS: BP 105/63; PULSE 64; RESP 18; TEMP 98; O2SAT 97
[2023-10-06] MEDS: BACITRACIN 28 GM OINTMENT TP SCH ×2 (08:50→16:19)
[2023-10-06] MEDS: FLUoxetine HCL 20 MG CAPSULE PO SCH (08:58)
[2023-10-06 09:00] VITALS: BP 100/63; PULSE 63; RESP 17; TEMP 98.1; O2SAT 98
[2023-10-06] MEDS: QUEtiapine FUMARATE 100 MG TABLET PO SCH (20:17)
[2023-10-06 20:50] VITALS: BP 117/75; PULSE 87; RESP 18; TEMP 98.3; O2SAT 98
[2023-10-07] MEDS: BACITRACIN 28 GM OINTMENT TP SCH ×2 (08:18→16:30)
[2023-10-07] MEDS: FLUoxetine HCL 20 MG CAPSULE PO SCH ×2 (08:18→08:58)
[2023-10-07 08:41] VITALS: BP 102/60; PULSE 59; RESP 18; TEMP 97.4; O2SAT 97
[2023-10-07 20:40] VITALS: BP 120/51; PULSE 81; RESP 18; TEMP 97.2; O2SAT 100
[2023-10-07] MEDS: QUEtiapine FUMARATE 100 MG TABLET PO SCH (21:11)
[2023-10-08] MEDS: FLUoxetine HCL 20 MG CAPSULE PO SCH (08:20)
[2023-10-08] MEDS: BACITRACIN 28 GM OINTMENT TP SCH ×2 (08:20→16:51)
[2023-10-08 09:45] VITALS: BP 109/60; PULSE 74; RESP 17; TEMP 97.7; O2SAT 100
[2023-10-08] MEDS: QUEtiapine FUMARATE 100 MG TABLET PO SCH (21:18)
[2023-10-08 21:32] VITALS: BP 120/69; PULSE 78; RESP 18; TEMP 97.9; O2SAT 98
[2023-10-09 08:49] VITALS: BP 120/70; PULSE 80; RESP 18; TEMP 97.9; O2SAT 98
[2023-10-09] MEDS: FLUoxetine HCL 20 MG CAPSULE PO SCH ×2 (09:00→09:58)
[2023-10-09] MEDS: BACITRACIN 28 GM OINTMENT TP SCH ×2 (09:58→16:31)
[2023-10-09] MEDS: QUEtiapine FUMARATE 100 MG TABLET PO SCH (20:36)
[2023-10-09 20:45] VITALS: BP 119/64; PULSE 86; RESP 18; TEMP 98.4; O2SAT 97
[2023-10-10] MEDS: FLUoxetine HCL 20 MG CAPSULE PO SCH (09:00)
[2023-10-10] MEDS: BACITRACIN 28 GM OINTMENT TP SCH ×2 (09:37→16:59)
[2023-10-10 09:46] VITALS: BP 108/56; PULSE 77; RESP 17; TEMP 97.7; O2SAT 97
[2023-10-10 20:10] VITALS: BP 119/70; PULSE 79; RESP 17; TEMP 96.4; O2SAT 97
[2023-10-10] MEDS: QUEtiapine FUMARATE 100 MG TABLET PO SCH (20:13)
[2023-10-11] MEDS: BACITRACIN 28 GM OINTMENT TP SCH ×2 (08:59→16:47)
[2023-10-11] MEDS: FLUoxetine HCL 20 MG CAPSULE PO SCH (09:00)
[2023-10-11 09:23] VITALS: BP 114/69; PULSE 87; RESP 18; TEMP 98.2; O2SAT 99
[2023-10-11] MEDS: QUEtiapine FUMARATE 100 MG TABLET PO SCH (20:06)
[2023-10-11 20:20] VITALS: BP 103/66; PULSE 74; RESP 20; TEMP 98.6; O2SAT 98
[2023-10-12] MEDS: BACITRACIN 28 GM OINTMENT TP SCH ×2 (08:53→16:44)
[2023-10-12] MEDS: FLUoxetine HCL 20 MG CAPSULE PO SCH (08:59)
[2023-10-12 09:15] VITALS: BP 123/62; PULSE 86; RESP 17; TEMP 97.8; O2SAT 99
[2023-10-12 20:00] VITALS: BP 114/62; PULSE 72; RESP 18; TEMP 98.2; O2SAT 98
[2023-10-12] MEDS: QUEtiapine FUMARATE 100 MG TABLET PO SCH (20:13)
[2023-10-13 08:23] VITALS: BP 110/72; PULSE 70; RESP 18; TEMP 98; O2SAT 100
[2023-10-13] MEDS: FLUoxetine HCL 20 MG CAPSULE PO SCH (09:00)
[2023-10-13] MEDS: BACITRACIN 28 GM OINTMENT TP SCH ×2 (09:24→16:45)
[2023-10-13] MEDS: QUEtiapine FUMARATE 100 MG TABLET PO SCH (21:13)
[2023-10-13 21:56] VITALS: BP 117/70; PULSE 81; RESP 20; TEMP 97.8; O2SAT 99
[2023-10-14 08:50] VITALS: BP 100/53; PULSE 86; RESP 16; TEMP 97.8; O2SAT 95
[2023-10-14] MEDS: FLUoxetine HCL 20 MG CAPSULE PO SCH (09:00)
[2023-10-14] MEDS: BACITRACIN 28 GM OINTMENT TP SCH ×2 (09:32→16:20)
[2023-10-14] MEDS: QUEtiapine FUMARATE 100 MG TABLET PO SCH (20:20)
[2023-10-14 20:31] VITALS: BP 126/60; PULSE 80; RESP 18; TEMP 96.8; O2SAT 97
[2023-10-15 08:37] VITALS: BP 121/58; PULSE 85; RESP 17; TEMP 97.7; O2SAT 98
[2023-10-15] MEDS: FLUoxetine HCL 20 MG CAPSULE PO SCH (09:00)
[2023-10-15] MEDS ORDERED: FLUO20CA36 PO (09:07)
[2023-10-15] MEDS: BACITRACIN 28 GM OINTMENT TP SCH (09:18)
== END 2023-10-15 17:38 | disposition home or self-care (01) | DRG 753 ==
LOC: EMS 20:12 → B2S 23:58
PROVIDERS: ADMIT Psychiatry & Neurology Psychiatry; ATTEND Psychiatry & Neurology Psychiatry
DX: F31.9 Bipolar disorder, unspecified (principal); F25.1 Schizoaffective disorder, depressive type; R45.851 Suicidal ideations; S10.91XA Abrasion of unspecified part of neck, initial encounter; X58.XXXA Exposure to other specified factors, initial encounter; F41.9 Anxiety disorder, unspecified; G47.00 Insomnia, unspecified; K59.00 Constipation, unspecified; Z20.822 Contact with and (suspected) exposure to COVID-19; S61.412A Laceration without foreign body of left hand, initial encounter; Y93.89 Activity, other specified; Y92.89 Other specified places as the place of occurrence of the external cause; Y99.8 Other external cause status
CPT/HCPCS: 80053; 80307; 81003; 85025; 99285; G0480; J3535

== ENCOUNTER 2025-01-07 00:07 | Inpatient (IN) | payer MEDICAID ==
[~2025-01-07] VITALS: Ht 177.8 cm; Wt 73.2 kg
[~2025-01-07 00:07] MED LIST changes: +BUPR-49 PO; -CEPH-558 PO; -FLUO20CA36 PO; -MELA5TAB40 PO; -NALT50TA PO; +OLAN10TA74 PO; -OMEG-135 PO; -ONDA-104 PO; -PALI117D IM; +TRAZ-252 PO
[2025-01-07] MEDS ORDERED: HALOPERIDOL 5 MG TABLET PO PRN (01:30)
[2025-01-07 02:01] VITALS: BP 117/65; PULSE 67; RESP 18; TEMP 98.6; O2SAT 99
[2025-01-07 02:10] LABS: GLUCOMETER DEV NAME(LOC) POC.BV; POC SARS-COV2 AG, FIA NEGATIVE (NEGATIVE)
[2025-01-07] MEDS: LORazepam 2 MG TABLET PO PRN (02:10)
[2025-01-07] MEDS ORDERED: DOCUSATE SODIUM 100 MG CAPSULE PO PRN (06:30)
[2025-01-07] MEDS ORDERED: LOPERAMIDE HCL 2 MG CAPSULE PO PRN (06:30)
[2025-01-07] MEDS ORDERED: MAGNESIUM HYDROXIDE SUSPENSION 30 ML UDCUP PO PRN (06:30)
[2025-01-07] MEDS ORDERED: ALBUTEROL SULFATE HFA 90 MCG/PUFF 8 GM INHALER IH PRN (06:30)
[2025-01-07] MEDS ORDERED: MAG HYDROX/ALUMINUM HYD/SIMETH ES 30 ML SUSPENSION UDCUP PO PRN (06:30)
[2025-01-07] MEDS ORDERED: CloNIDine HCL 0.1 MG TABLET PO PRN (06:30)
[2025-01-07] MEDS ORDERED: GuaiFENesin/D-METHORPHAN [SUGAR-FREE] 200-20MG/10 ML SYRUP UDCUP PO PRN (06:30)
[2025-01-07] MEDS ORDERED: ONDANSETRON 4 MG TABLET PO PRN (06:30)
[2025-01-07] MEDS ORDERED: IBUPROFEN 400 MG TABLET PO PRN (06:30)
[2025-01-07] MEDS ORDERED: PETROLATUM,WHITE 28 GM JELLY TP PRN (06:30)
[2025-01-07] MEDS ORDERED: ACETAMINOPHEN 325 MG TABLET PO PRN (06:30)
[2025-01-07] MEDS ORDERED: NICOTINE 14 MG/24 HOUR PATCH TD PRN (06:30)
[2025-01-07 08:38] VITALS: BP 102/63; PULSE 63; RESP 18; TEMP 97.2; O2SAT 97
[2025-01-07 20:24] VITALS: BP 106/56; PULSE 80; RESP 16; TEMP 97.7; O2SAT 96
[2025-01-07] MEDS: ZOLPIDEM TARTRATE 10 MG TABLET PO PRN (20:58)
[2025-01-07] MEDS: TraZODone HCL 50 MG TABLET PO SCH (21:12)
[2025-01-07] MEDS: OLANZapine 10 MG TABLET PO SCH (21:12)
[2025-01-08] MEDS: BuPROPion HCL XL 150 MG ER TABLET PO SCH (08:05)
[2025-01-08 08:07] VITALS: BP 106/78; PULSE 72; RESP 15; TEMP 97.6; O2SAT 98
[2025-01-08 08:41] LABS: BASOPHILS % (AUTO) 0.4 % (0.0-2.0); EOSINOPHILS % (AUTO) 2.8 % (1.0-6.0); HEMATOCRIT 42.6 % (41-53); HEMOGLOBIN 14.1 g/dL (13.5-17.5); LYMPHOCYTES # (AUTO) 1.5 K/uL (1.0-4.8); LYMPHOCYTES % (AUTO) 28.3 % (22.0-44.0); MEAN CORPUSCULAR HEMOGLOBIN 29.8 pg (26.0-34.0); MEAN CORPUSCULAR HGB CONC 33.1 G/dL (31.0-37.0); MEAN CORPUSCULAR VOLUME 90 fL (80-100); MONOCYTES # (AUTO) 0.4 K/uL (0.1-1.0); MONOCYTES % (AUTO) 8.1 % (2.0-9.0); NEUTROPHILS # (AUTO) 3.1 K/uL (1.8-7.7); NEUTROPHILS % (AUTO) 60.4 % (40.0-70.0); PLATELET COUNT (AUTO) 210 K/uL (150-450); RED BLOOD CELL COUNT(AUTO) 4.73 MIL/uL (4.50-5.90); RED CELL DISTRIBUTION WIDTH 14.3 % (11.5-14.5); WHITE BLOOD COUNT (AUTO) 5.2 K/uL (4.5-11.0)
[2025-01-08 08:53] LABS: HEMOGLOBIN A1C 5.4 % (3.8-5.6)
[2025-01-08 09:08] LABS: ALANINE AMINOTRANSFERASE 124 U/L (12-78); ALBUMIN 3.3 g/dL (3.4-5.0); ALKALINE PHOSPHATASE 63 U/L (46-116); ANION GAP 8 mmol/L (8-16); ASPARTATE AMINOTRANSFERASE 163 U/L (15-37); BILIRUBIN,TOTAL 0.2 mg/dL (0.1-1.0); CALCIUM, TOTAL 8.7 mg/dL (8.8-10.5); CARBON DIOXIDE 27 mmol/L (22-29); CHLORIDE 105 mmol/L (98-107); CHOL/HDL RATIO 2.3 (4.2-7.3); CHOLESTEROL 152 mg/dL (131-200); CREATININE 0.74 mg/dL (0.60-1.30); GLOMERULAR FILTR. RATE CALC > 60 mL/min (>60); GLUCOSE,RANDOM 90 mg/dL (70-110); HDL CHOLESTEROL 65 mg/dL (40-60); LDL CHOL (CALC.) 81 mg/dL (0-130); POTASSIUM 4.1 mmol/L (3.5-5.1); SODIUM SERUM 140 mmol/L (136-145); THYROID STIMULATING HORMONE 1.77 uIU/mL (0.36-3.74); TOTAL PROTEIN, SERUM 6.5 g/dL (6.4-8.2); TRIGLYCERIDES 30 mg/dL (15-150); UREA NITROGEN, BLOOD 11 mg/dL (7-18)
[2025-01-09 09:36] LABS: APPEARANCE,URINE TURBID (CLEAR); BILIRUBIN,URINE NEGATIVE (NEGATIVE); COLOR,URINE YELLOW (YELLOW); GLUCOSE, URINE (UA) NEGATIVE (NEGATIVE); KETONES,URINE TRACE mg/dL (NEGATIVE); LEUKOCYTE ESTERASE ,URINE NEGATIVE (NEGATIVE); NITRATE,URINE NEGATIVE (NEGATIVE); OCCULT BLOOD,URINE NEGATIVE (NEGATIVE); PH,URINE 5.5 (5.0-8.0); PH,URINE DRUG SCREEN 5.5 (5.0-8.0); PROTEIN,URINE TRACE mg/dL (NEGATIVE); SPECIFIC GRAVITIY, URINE 1.028 (1.003-1.030); UROBILINOGEN,URINE <=1.0 mg/dL (<=1.0)
[2025-01-09 09:55] LABS: ALCOHOL, URINE DRUG SCREEN NEGATIVE (NEGATIVE); AMPHET/METH SCREEN,URINE NEGATIVE (NEGATIVE); BARBITURATE SCREEN, URINE NEGATIVE (NEGATIVE); BENZODIAZEPINES SCREEN,URINE NEGATIVE (NEGATIVE); CANNABINOID SCREEN,URINE POSITIVE (NEGATIVE); COCAINE SCREEN,URINE NEGATIVE (NEGATIVE); METHADONE SCREEN, URINE NEGATIVE (NEGATIVE); OPIATE SCREEN,URINE NEGATIVE (NEGATIVE); PHENCYCLIDINE SCREEN,URINE NEGATIVE (NEGATIVE)
[2025-01-09 12:11] VITALS: BP 109/66; PULSE 78; RESP 18; TEMP 97.7; O2SAT 78
[2025-01-09 20:21] VITALS: BP 110/58; PULSE 73; RESP 17; TEMP 98.4; O2SAT 97
[2025-01-10 08:13] VITALS: BP 106/60; PULSE 66; RESP 16; TEMP 97.9; O2SAT 99
[2025-01-10 20:54] VITALS: BP 113/64; PULSE 73; RESP 20; TEMP 99.6; O2SAT 98
[2025-01-11 08:11] VITALS: BP 115/64; PULSE 65; RESP 17; TEMP 97.7; O2SAT 98
[2025-01-11 20:15] VITALS: BP 124/70; PULSE 81; RESP 16; TEMP 97.5; O2SAT 97
[2025-01-12 08:37] VITALS: BP 106/63; PULSE 69; RESP 17; TEMP 98.1; O2SAT 96
[2025-01-12 21:08] VITALS: BP 129/72; PULSE 79; RESP 17; TEMP 98; O2SAT 98
[2025-01-13 08:51] VITALS: BP 104/54; PULSE 69; RESP 17; TEMP 97.1; O2SAT 98
[2025-01-13 20:48] VITALS: BP 123/69; PULSE 80; RESP 18; TEMP 97.2; O2SAT 97
[2025-01-14 08:20] VITALS: BP 120/80; PULSE 65; RESP 17; TEMP 97.2; O2SAT 98
== END 2025-01-14 17:26 | disposition home or self-care (01) | DRG 750 ==
LOC: B3A 01:16 → B2S 01-12 08:42
PROVIDERS: ADMIT Psychiatry & Neurology Child & Adolescent Psychiatry; ATTEND Psychiatry & Neurology Child & Adolescent Psychiatry
PROC: GZ56ZZZ Individual Psychotherapy, Supportive (ICD-10-PCS; principal; 2025-01-07)
DX: F25.0 Schizoaffective disorder, bipolar type (principal); R45.851 Suicidal ideations; F12.10 Cannabis abuse, uncomplicated; F41.9 Anxiety disorder, unspecified; Z20.822 Contact with and (suspected) exposure to COVID-19; G47.00 Insomnia, unspecified; Z91.199 Patient's noncompliance with other medical treatment and regimen due to unspecified reason
CPT/HCPCS: 80053; 80061; 80307; 81003; 83036; 84443; 85025